=== PATIENT | female | born 1965 | race Caucasian/White ===

== ENCOUNTER → 2017-05-11 | Outpatient (CLI) | payer OTHER | LOC: FIMAGING 09:10 | PROVIDERS: ATTEND Family Medicine ==

== ENCOUNTER → 2018-03-16 | Outpatient (CLI) | payer OTHER ==
--- NOTE | 2018-03-17 16:02 | CPEKG ---
Test Reason : OPEN Blood Pressure : / mmHG Vent. Rate : 094 BPM Atrial Rate : 093 BPM P-R Int : 152 ms QRS Dur : 072 ms QT Int : 364 ms P-R-T Axes : 038 054 048 degrees QTc Int : 456 ms SINUS RHYTHM Confirmed by Robert Stephenson ([id number]) on 03/17/2018 4:01:47 PM Referred By: Confirmed By:Robert Stephenson
== END ==
LOC: FCP 16:03
PROVIDERS: ATTEND Family Medicine
DX: R06.02 Shortness of breath (principal)